=== PATIENT | female | born 2000 | race African-American/Black ===

== ENCOUNTER 2023-01-09 16:15 | Emergency (ER) | payer SELFPAY ==
[~2023-01-09] VITALS: Ht 170.2 cm; Wt 56.7 kg
--- NOTE | 2023-01-09 16:46 | NUR ---
C/O SHARP SUBSTERNAL CHEST PAIN X 1 WEEK RADIATING TO THE BACK. PT DENIES NAUSEA, VAOMITING, DIARRHEA OR ANY TRAUMA TO THE AFFECTED AREA. PT IS BREATHING EVEN AND UNLABORED. AMBULATED TO BED WITH STEADY GAIT. AAOX4. CONNECTED TO MONITOR. VITAL SIGNS STABLE. SAFETY PRECAUTIONS IN PLACE. AWAITING MD ORDERS.
--- NOTE | 2023-01-09 16:48 | NUR ---
NOE SADLER AT BEDSIDE FOR EKG
--- NOTE | 2023-01-09 17:04 | NUR ---
DR. SERRANO AT BEDSIDE FOR EVAL.
--- NOTE | 2023-01-09 17:08 | NUR ---
ESTABLISHED IV ACCESS RIGHT AC 20G. CONCRETE TESTER AT BEDSIDE. BLOOD DRAWN AND SENT TO LAB
--- NOTE | 2023-01-09 17:15 | NUR ---
XRAY AT BEDSIDE.
[2023-01-09 17:23] LABS: BASOPHILS % (AUTO) 0.1 % (0.0-2.0); EOSINOPHILS % (AUTO) 0.4 % (0.0-6.0); HEMATOCRIT 32 % (33-45); HEMOGLOBIN 9.7 g/dL (11.5-14.8); LYMPHOCYTES # (AUTO) 0.7 K/uL (0.8-4.8); LYMPHOCYTES % (AUTO) 15.6 % (20.0-44.0); MEAN CORPUSCULAR HGB CONC 31 g/dl (31.0-36.0); MEAN CORPUSCULAR VOLUME 75 fL (82-100); MONOCYTES # (AUTO) 0.5 K/uL (0.1-1.30); MONOCYTES % (AUTO) 11.3 % (2.0-12.0); NEUTROPHILS # (AUTO) 3.2 K/uL (1.8-8.9); NEUTROPHILS % (AUTO) 72.6 % (43.0-81.0); PLATELET COUNT (AUTO) 299 K/uL (150-450); RED BLOOD CELL COUNT(AUTO) 4.23 MIL/uL (4.0-5.2); WHITE BLOOD COUNT (AUTO) 4.3 K/uL (4.3-11.0)
[2023-01-09 17:39] LABS: CALCIUM, SERUM 8.8 mg/dL (8.5-10.1); CARBON DIOXIDE 29 mmol/L (21-32); CHLORIDE 105 mmol/L (98-107); CREATININE 0.8 mg/dL (0.6-1.3); GLUCOSE 92 mg/dL (74-106); POTASSIUM 3.7 mmol/L (3.5-5.1); SODIUM SERUM 141 mmol/L (136-145); UREA NITROGEN, BLOOD 7 mg/dL (7-18)
--- NOTE | 2023-01-09 18:51 | NUR ---
Patient discharged to home in stable condition. Written and verbal after care instructions given. Patient verbalizes understanding of instruction. IV removed. Catheter intact and site benign. Pressure and 4x4 applied to site. No bleeding noted.
[2023-01-09 19:05] VITALS: BP 110/76
[2023-01-09 19:34] LABS: EOSINOPHILS % (MANUAL) 1 % (0-4); LYMPHOCYTES % (MANUAL) 24 % (16-48); MONOCYTES % (MANUAL) 5 % (0-11.0); NEUTROPHILS % (MANUAL) 70 (42-76)
== END 2023-01-09 19:05 | disposition home or self-care (01) ==
LOC: ER 16:25
DX: R07.9 Chest pain, unspecified (principal); M25.511 Pain in right shoulder
CPT/HCPCS: 36415; 71045-TC; 80048-TC; 84484-TC; 85025-TC